=== PATIENT | female | born 2000 | race Caucasian/White ===

== ENCOUNTER 2025-10-07 10:17 | Emergency (ER) | payer OTHER ==
[~2025-10-07] VITALS: Ht 170.2 cm; Wt 55.3 kg
[2025-10-07 11:46] LABS: BASO # 0.1 10^3/uL (0.0-0.2); BASO % 0.7 % (0.0-1.0); EOS # 0.4 10^3/uL (0.0-0.5); EOS % 4.0 % (0.0-3.0); LYMPH # 1.3 10^3/uL (1.5-5.0); LYMPH % 13.5 % (24.0-44.0); MONO # 0.8 10^3/uL (0.0-0.8); MONO % 8.4 % (2.0-8.0); NEUTROPHILS # 7.0 10^3/uL (1.5-8.5); NEUTROPHILS % 73.2 % (36.0-66.0); PLATELET COUNT, AUTOMATED 362 10^3/uL (150-450)
[2025-10-07 11:52] LABS: KETONE, URINE AUTO RFX NEGATIVE (NEGATIVE); LEUKOCYTE ESTERASE UR AUTO RFX NEGATIVE (NEGATIVE); NITRITE, URINE AUTO RFX NEGATIVE (NEGATIVE); RBC, URINE AUTO RFX 2 /HPF (0-3); SQUAM EPITHELIAL CELL UR AURFX 1 /HPF (0-6); WBC, URINE AUTO RFX 2 /HPF (0-3)
[2025-10-07 12:06] LABS: HCG, SERUM QUALITATIVE NEGATIVE (NEGATIVE)
[2025-10-07 12:09] LABS: ALT/SGPT 11 U/L (7.0-40); AST/SGOT 18 U/L (<34); CALCIUM LEVEL 9.3 MG/DL (8.5-10.1); CARBON DIOXIDE LEVEL 28 MMOL/L (20-31); CHLORIDE LEVEL 101 MMOL/L (98-107); CREATININE FOR GFR 0.83 MG/DL (0.55-1.30); GLOMERULAR FILTRATION RATE > 90.0 (>60); POTASSIUM SERUM 4.5 MMOL/L (3.5-5.1); SODIUM LEVEL 138 MMOL/L (136-145)
[2025-10-07] MEDS ORDERED: MIRA3350 PO (13:35)
[2025-10-07] MEDS ORDERED: META0.52 PO (13:35)
[2025-10-07 13:42] VITALS: BP 103/62; TEMP 98.3; O2SAT 100
== END 2025-10-07 14:06 | disposition home or self-care (01) ==
LOC: M ED 10:17
DX: K59.00 Constipation, unspecified (principal); K58.9 Irritable bowel syndrome, unspecified; F17.290 Nicotine dependence, other tobacco product, uncomplicated; Z79.899 Other long term (current) drug therapy

== ENCOUNTER 2025-10-11 09:47 | Emergency (ER) | payer OTHER ==
[~2025-10-11] VITALS: Ht 170.2 cm; Wt 54.5 kg
[~2025-10-11 09:47] MED LIST: META0.52 PO; MIRA3350 PO
[2025-10-11] MEDS ORDERED: HOME MED LIST COMPLETE! XX SCH (11:05)
[2025-10-11 12:08] LABS: ALT/SGPT 10 U/L (7.0-40); AST/SGOT 19 U/L (<34); CALCIUM LEVEL 9.4 MG/DL (8.5-10.1); CARBON DIOXIDE LEVEL 26 MMOL/L (20-31); CHLORIDE LEVEL 102 MMOL/L (98-107); CREATININE FOR GFR 0.72 MG/DL (0.55-1.30); GLOMERULAR FILTRATION RATE > 90.0 (>60); POTASSIUM SERUM 4.3 MMOL/L (3.5-5.1); SODIUM LEVEL 139 MMOL/L (136-145)
[2025-10-11 12:09] LABS: HCG, SERUM QUALITATIVE NEGATIVE (NEGATIVE)
[2025-10-11 12:13] LABS: BASO # 0.1 10^3/uL (0.0-0.2); BASO % 0.6 % (0.0-1.0); EOS # 0.7 10^3/uL (0.0-0.5); EOS % 5.9 % (0.0-3.0); LYMPH # 1.7 10^3/uL (1.5-5.0); LYMPH % 14.7 % (24.0-44.0); MONO # 1.4 10^3/uL (0.0-0.8); MONO % 11.6 % (2.0-8.0); NEUTROPHILS # 7.9 10^3/uL (1.5-8.5); NEUTROPHILS % 67.0 % (36.0-66.0); PLATELET COUNT, AUTOMATED 388 10^3/uL (150-450)
[2025-10-11 13:15] LABS: C REACTIVE PROTEIN QUANTITATIV 8.06 MG/DL (<1.0)
[2025-10-11] MEDS ORDERED: ISOVUE-370 76% 100 ML VIAL As Ordered ONE (13:21)
[2025-10-11] MEDS ORDERED: ACYC1CAP20 PO (14:01)
[2025-10-11 14:16] VITALS: BP 108/61; TEMP 98.5; O2SAT 99
== END 2025-10-11 14:21 | disposition home or self-care (01) ==
LOC: M ED 09:47
DX: K51.90 Ulcerative colitis, unspecified, without complications (principal); B00.9 Herpesviral infection, unspecified; Z79.2 Long term (current) use of antibiotics
CPT/HCPCS: 36415; 74177; 80048; 80076; 83605; 83690; 84703; 85025; 85652; 86140; 99284; Q9967